=== PATIENT | female | born 1945 | race Caucasian/White ===

== ENCOUNTER → 2020-01-18 | Outpatient (CLI) | payer MEDICARE ==
[~2020-01-18] MED LIST: ACET1TAB39 PO; CIPR500T3 PO; LISI-170 PO; LISI1TAB19 PO; LISI1TAB23 PO; METF500T17 PO; ZOLP10TA PO
[2020-01-18 10:06] LABS: BASOPHILS # (AUTO) 0.06 x10^3/uL (0-0.1); BASOPHILS % (AUTO) 1 % (0-1); EOSINOPHILS # (AUTO) 0.92 x10^3/uL (0-0.4); EOSINOPHILS % (AUTO) 12 % (1-7); LYMPHOCYTES # (AUTO) 1.14 x10^3/uL (1-3.4); LYMPHOCYTES % (AUTO) 14 % (22-44); MD NO; MEAN CORPUSCULAR HEMOGLOBIN 30.8 pg (27.0-34.8); MEAN CORPUSCULAR HGB CONC 34.3 g/dL (32.4-35.8); MEAN CORPUSCULAR VOLUME 89.8 fL (80-100); MEAN PLATELET VOLUME 7.7 fL (7.4-10.4); MONOCYTES # (AUTO) 0.65 x10^3/uL (0.2-0.8); MONOCYTES % (AUTO) 8 % (2-9); NEUTROPHILS # (AUTO) 5.18 x10^3/uL (1.8-6.8); NEUTROPHILS % (AUTO) 65 % (42-75); PLATELET COUNT 295 x10^3/uL (130-400); RED BLOOD COUNT 4.82 x10^6/uL (3.82-5.3); RED CELL DISTRIBUTION WIDTH 13.1 % (9.6-15.2)
[2020-01-18 10:13] LABS: INTERNATIONAL NORMALIZED RATIO 0.95 (0.93-1.1); PROTHROMBIN TIME 10.1 Seconds (9.6-11.5)
[2020-01-18 10:15] LABS: ALANINE AMINOTRANSFERASE 19 U/L (12-78); ALBUMIN 3.7 g/dL (3.4-5.0); ANION GAP 9 mmol/L (5-15); CALCIUM 8.8 mg/dL (8.5-10.1); CHLORIDE 103 mmol/L (98-107); CREATININE 1.07 mg/dL (0.55-1.02)
[2020-01-18 10:17] LABS: ALKALINE PHOSPHATASE 80 U/L (45-117); BILIRUBIN,TOTAL 0.6 mg/dL (0.2-1.0); TOTAL PROTEIN 7.3 g/dL (6.4-8.2)
== END | disposition home or self-care (01) ==
LOC: STAR 08:55
PROVIDERS: ATTEND Orthopaedic Surgery
DX: Z01.818 Encounter for other preprocedural examination (principal); M16.11 Unilateral primary osteoarthritis, right hip
CPT/HCPCS: 36415; 80053; 83036; 85025; 85610; 85730; 87081; 87806; 93005; G0475

== ENCOUNTER 2020-01-24 10:29 | Observation (INO) | payer MEDICARE ==
[~2020-01-24] VITALS: Ht 172.7 cm; Wt 87.1 kg
[~2020-01-24 10:29] MED LIST changes: +EPINEPHRINE 1 MG/ML, 1ML ONE; +KETOROLAC 60 MG/2 ML ONE; +ROPIvacaine/PF 0.2%, 20 ML ONE; +SODIUM CHLORIDE 0.9% 50 ML ONE; +TRANEXAMIC ACID 100 MG/ML, 10ML ONE
[2020-01-24] MEDS ORDERED: LACTATED RINGERS 1,000 ML IV SCH (10:47)
[2020-01-24] MEDS ORDERED: GABAPENTIN 300 MG CAPSULE PO ONE (11:00)
[2020-01-24] MEDS ORDERED: ACETAMINOPHEN 500 MG TABLET PO ONE (11:00)
[2020-01-24 11:06] VITALS: BP 142/71
[2020-01-24] MEDS ORDERED: FENTANYL PF 250 MCG/5ML ONE (12:40)
[2020-01-24] MEDS ORDERED: MIDAZOLAM 1 MG/ML, 2ML ONE (12:40)
[2020-01-24] MEDS: D5%-0.45NACL+KCL 20MEQ 1,000 ML IV SCH ×2 (13:25→23:25)
[2020-01-24] MEDS ORDERED: HYDROmorphone 1 MG/ML, 1ML INJ IVPush PRN (13:30)
[2020-01-24] MEDS ORDERED: ONDANSETRON 2MG/ML, 2ML IV PRN ×2 (13:30→15:30)
[2020-01-24] MEDS ORDERED: SENNA/DOCUSATE TABLET PO PRN (13:30)
[2020-01-24] MEDS ORDERED: DIPHENHYDRAMINE 50 MG CAPSULE PO PRN (13:30)
[2020-01-24] MEDS ORDERED: MAGNESIUM HYDROXIDE 8%, 30ML UDC PO PRN (13:30)
[2020-01-24] MEDS ORDERED: DIPHENHYDRAMINE 50 MG/ML, 1ML IVPush PRN (13:30)
[2020-01-24] MEDS ORDERED: ALUMINUM/MAG/SIMETHICONE 30 ML UDC PO PRN (13:30)
[2020-01-24] MEDS ORDERED: POLYETHYLENE GLYCOL 17 GM PACKET PO PRN (13:30)
[2020-01-24] MEDS ORDERED: ONDANSETRON 4 MG TABLET PO PRN (13:30)
[2020-01-24] MEDS ORDERED: TRANEXAMIC ACID 1,000 MG in SODIUM CHLORIDE 0.9% 100 ML IVPB ONE ×2 (13:30→13:58)
[2020-01-24] MEDS ORDERED: PSYLLIUM PACKET PO PRN (13:30)
[2020-01-24] MEDS ORDERED: DEXAMETHASONE 4 MG/ML, 1ML IVPush SCH (13:30)
[2020-01-24] MEDS ORDERED: ACETAMINOPHEN 650 MG/20.3 ML UDC PO PRN (13:30)
[2020-01-24] MEDS ORDERED: CEFAZOLIN 1,000 MG ONE (14:23)
[2020-01-24] MEDS ORDERED: SUGAMMADEX 200 MG/2 ML IVPush ONE (14:23)
[2020-01-24] MEDS ORDERED: PROPOFOL 10 MG/ML, 20ML ONE (14:23)
[2020-01-24] MEDS ORDERED: GLYCOPYRROLATE 0.2MG/1ML, 5ML ONE (14:23)
[2020-01-24] MEDS ORDERED: ONDANSETRON 2MG/ML, 2ML ONE (14:23)
[2020-01-24] MEDS ORDERED: NEOSTIGMINE 1 MG/ML, 10ML ONE (14:23)
[2020-01-24] MEDS ORDERED: ROCURONIUM 10MG/ML,5ML ONE (14:23)
[2020-01-24] MEDS ORDERED: SUCCINYLCHOLINE 20 MG/ML, 10ML ONE (14:23)
[2020-01-24] MEDS ORDERED: DEXAMETHASONE 4 MG/ML, 1ML ONE (14:23)
[2020-01-24] MEDS: FENTANYL PF 100 MCG/2ML IV PRN ×2 (14:57→15:23)
[2020-01-24] MEDS ORDERED: OXYcodone 5 MG/5 ML ORAL.SOL UDC ONE (14:58)
[2020-01-24] MEDS ORDERED: FENTANYL PF 100 MCG/2ML ONE (14:58)
[2020-01-24] MEDS ORDERED: LORazepam 2 MG/ML, 1ML ONE (15:10)
[2020-01-24] MEDS: LORazepam 2 MG/ML, 1ML IVPush PRN ×2 (15:13→15:32)
[2020-01-24] MEDS ORDERED: hydrALAzine 20 MG/ML, 1ML IV PRN (15:30)
[2020-01-24] MEDS ORDERED: PROMETHAZINE 25 MG SUPP PR PRN (15:30)
[2020-01-24] MEDS ORDERED: LABETALOL 5MG/ML, 20ML IV PRN (15:30)
[2020-01-24] MEDS ORDERED: METHOCARBAMOL 1000MG/10 ML IV ONE (15:30)
[2020-01-24] MEDS ORDERED: METHOCARBAMOL 1,000 MG in DEXTROSE 5% 100 ML IV ONE (15:30)
[2020-01-24] MEDS ORDERED: ONDANSETRON ODT 8 MG PO PRN (15:30)
[2020-01-24] MEDS ORDERED: HYDROmorphone 2 MG/ML, 1ML IVPush PRN (15:30)
[2020-01-24] MEDS ORDERED: OXYcodone 5 MG/5 ML ORAL.SOL UDC PO PRN (15:30)
[2020-01-24] MEDS ORDERED: PROMETHAZINE 25 MG/ML, 1ML IV PRN (15:30)
[2020-01-24] MEDS: ACETAMINOPHEN 325 MG TABLET PO SCH ×3 (17:30→21:30)
[2020-01-24] MEDS ORDERED: ZOLPIDEM 10MG TABLET PO PRN (18:00)
[2020-01-24] MEDS: DOCUSATE 100 MG CAPSULE PO SCH (20:16)
[2020-01-24] MEDS: ASPIRIN 81 MG TABLET EC PO SCH (20:17)
[2020-01-24] MEDS: KETOROLAC 30 MG/1 ML IV SCH (20:18)
[2020-01-24] MEDS: OXYcodone IR 5MG TABLET PO PRN (20:47)
[2020-01-24 20:59] VITALS: BP 146/78
[2020-01-24] MEDS: CEFAZOLIN PMX 1GM/50ML 50 ML IVPB SCH (22:06)
[2020-01-24 23:20] VITALS: BP 127/73
[2020-01-25] MEDS: ACETAMINOPHEN 325 MG TABLET PO SCH ×3 (02:49→10:30)
[2020-01-25 03:08] VITALS: BP 142/70
[2020-01-25] MEDS: CEFAZOLIN PMX 1GM/50ML 50 ML IVPB SCH (05:46)
[2020-01-25] MEDS: KETOROLAC 30 MG/1 ML IV SCH ×2 (05:46→12:00)
[2020-01-25 07:15] VITALS: BP 143/73
[2020-01-25] MEDS: DOCUSATE 100 MG CAPSULE PO SCH (08:16)
[2020-01-25] MEDS: ASPIRIN 81 MG TABLET EC PO SCH (08:16)
[2020-01-25] MEDS: D5%-0.45NACL+KCL 20MEQ 1,000 ML IV SCH (08:18)
[2020-01-25] MEDS ORDERED: ASPI81TA45 PO (08:48)
[2020-01-25] MEDS ORDERED: HYDROCHLOROTHIAZIDE 12.5 MG CAPSULE PO SCH (09:00)
[2020-01-25] MEDS ORDERED: TAMSULOSIN 0.4 MG CAP.ER.24H PO SCH (09:00)
[2020-01-25] MEDS ORDERED: LISINOPRIL 20 MG TABLET PO SCH (09:00)
[2020-01-25] MEDS: OXYcodone IR 5MG TABLET PO PRN (10:19)
[2020-01-25 11:58] VITALS: BP 113/57
== END 2020-01-25 12:40 | disposition home or self-care (01) ==
LOC: OUT 10:29 → ORIP 13:25 → 4NE 17:20 → DCLOUNGE 01-25 12:25
PROVIDERS: ADMIT Orthopaedic Surgery; ATTEND Orthopaedic Surgery
DX: M17.11 Unilateral primary osteoarthritis, right knee (principal); I10 Essential (primary) hypertension; Z79.899 Other long term (current) drug therapy; Z87.891 Personal history of nicotine dependence
CPT/HCPCS: 27447; 36415; 73560; 85014; 85018; 96365; 96366; 96375; 96376; 97110; 97161; C1713; C1776; G0378; J0171; J0330; J0690; J1100; J1885; J2060; J2250; J2405; J2704; J2710; J2795; J2800; J3010; J7120

== ENCOUNTER 2020-04-28 04:55 | Inpatient (IN) | payer MEDICARE ==
[~2020-04-28] VITALS: Ht 172.7 cm; Wt 88.7 kg
[~2020-04-28 04:55] MED LIST changes: +ASPI81TA45 PO; -EPINEPHRINE 1 MG/ML, 1ML ONE; -KETOROLAC 60 MG/2 ML ONE; -ROPIvacaine/PF 0.2%, 20 ML ONE; -SODIUM CHLORIDE 0.9% 50 ML ONE; -TRANEXAMIC ACID 100 MG/ML, 10ML ONE
[2020-04-28] MEDS ORDERED: VANCOMYCIN PER PHARMACY MC ONE (05:15)
[2020-04-28] MEDS ORDERED: VANCOMYCIN 1,600 MG in SODIUM CHLORIDE 0.9% 250 ML IV ONE (05:30)
[2020-04-28] MEDS ORDERED: HYDROmorphone 2 MG/ML, 1ML IVPush PRN (05:30)
[2020-04-28] MEDS ORDERED: SODIUM CHLORIDE 0.9% 1,000ML IVBOLUS ONE (05:30)
[2020-04-28] MEDS ORDERED: DILTIAZEM 5 MG/ML, 5ML ONE (05:37)
[2020-04-28] MEDS ORDERED: LIDOCAINE-MPF 2% ,5ML ONE (05:44)
--- NOTE | 2020-04-28 05:48 | NUR ---
CT DELAY, MD STARTING CENTRAL LINE ON PT.
[2020-04-28] MEDS ORDERED: LIDOCAINE-MPF 1%, 5ML ONE (05:50)
--- NOTE | 2020-04-28 05:59 | NUR ---
Kristi rn: states only wanting one blood culture prior to abx and states she already got abx at other facility.
--- NOTE | 2020-04-28 06:03 | NUR ---
Kristi rn: states ok to use central line, present at bedside during cxr.
[2020-04-28 06:10] LABS: MEAN CORPUSCULAR HEMOGLOBIN 30.1 pg (27.0-34.8); MEAN CORPUSCULAR HGB CONC 33.2 g/dL (32.4-35.8); MEAN CORPUSCULAR VOLUME 90.6 fL (80-100); MEAN PLATELET VOLUME 8.9 fL (7.4-10.4); PLATELET COUNT 278 x10^3/uL (130-400); RED BLOOD COUNT 4.29 x10^6/uL (3.82-5.3); RED CELL DISTRIBUTION WIDTH 13.4 % (9.6-15.2)
--- NOTE | 2020-04-28 06:10 | NUR ---
Pt to ct at this time.
--- NOTE | 2020-04-28 06:21 | NUR ---
TASK RN: PT BACK FROM CT, RESTING IN [facility], NAD, SKIN IS WARM AND DRY, CALL LIGHT ON LAP, ON MONITOR, DENIES ADDITIONAL NEEDS AT THIS TIME. WAITING FOR TEST RESULTS. WCTM.
[2020-04-28 06:22] LABS: ALBUMIN 2.4 g/dL (3.4-5.0); ANION GAP 13 mmol/L (5-15); CALCIUM 7.7 mg/dL (8.5-10.1); CHLORIDE 102 mmol/L (98-107)
[2020-04-28 06:27] LABS: ALANINE AMINOTRANSFERASE 35 U/L (12-78); ALKALINE PHOSPHATASE 95 U/L (45-117); BILIRUBIN,TOTAL 1.3 mg/dL (0.2-1.0); TOTAL PROTEIN 6.2 g/dL (6.4-8.2)
[2020-04-28] MEDS ORDERED: NOREPINEPHRINE 8 MG in SODIUM CHLORIDE 0.9% 242 ML IV PRN ×2 (06:30→09:38)
[2020-04-28] MEDS: NOREPINEPHRINE 8 MG in SODIUM CHLORIDE 0.9% 242 ML IV PRN ×2 (06:30→07:00)
[2020-04-28 06:31] LABS: MD YES
[2020-04-28 06:32] LABS: BAND#(MANUAL) 2.03 x10^3/uL; BANDS%(MANUAL) 9 % (0-7); LYMPH#(MANUAL) 0.23 x10^3/uL (1-3.4); LYMPHS% (MANUAL) 1 % (22-44); MONOS#(MANUAL) 0.23 x10^3/uL (0.3-2.7); MONOS% (MANUAL) 1 % (2-9); SEG#(MANUAL) 20.11 x10^3/uL (1.8-6.8); SEGS% (MANUAL) 89 % (42-75)
[2020-04-28 06:33] LABS: <PLATELET ESTIMATE> ADEQUATE; <PLT MORPHOLOGY> NORMAL PLT MORPH; <RBC MORPHOLOGY> NORMAL
[2020-04-28] MEDS ORDERED: FENTANYL PF 250 MCG/5ML ONE (06:52)
[2020-04-28] MEDS ORDERED: MIDAZOLAM 1 MG/ML, 2ML ONE (06:52)
[2020-04-28] MEDS ORDERED: DILTIAZEM 5 MG/ML, 5ML IVPush ONE (07:00)
[2020-04-28] MEDS ORDERED: VASOPRESSIN 20 UNIT/ML, 1ML ONE (07:20)
[2020-04-28] MEDS ORDERED: SODIUM BICARBONATE 1 MEQ/ML, 50ML VIAL ONE ×4 (07:54→08:02)
[2020-04-28] MEDS ORDERED: CALCIUM CHLORIDE 10%, 10ML SYR ONE (07:57)
[2020-04-28] MEDS ORDERED: METHYLENE BLUE 10 MG/ML 10ML ONE (08:15)
[2020-04-28] MEDS ORDERED: ROCURONIUM 10MG/ML,5ML ONE ×2 (08:28)
[2020-04-28 08:44] LABS: MICROSCOPIC INDICATED
[2020-04-28] MEDS ORDERED: MIDAZOLAM 1 MG/ML, 5ML ONE (08:45)
[2020-04-28] MEDS ORDERED: HYDROmorphone 2 MG/ML, 1ML ONE (09:06)
[2020-04-28] MEDS ORDERED: PROPOFOL 100 ML IV ONE (09:52)
[2020-04-28] MEDS: PROPOFOL 100 ML IV PRN ×2 (09:58→17:05)
[2020-04-28] MEDS ORDERED: SENNA/DOCUSATE TABLET NG PRN (10:00)
[2020-04-28] MEDS ORDERED: LACTULOSE 20 GM/30 ML UDC NG PRN (10:00)
[2020-04-28] MEDS ORDERED: PHARMACY MAY ADJ FOR RENAL FX MC SCH (10:00)
[2020-04-28] MEDS ORDERED: BISACODYL 10 MG SUPP PR PRN (10:00)
[2020-04-28] MEDS ORDERED: SENNA 176 MG/5 ML ORAL SOL NG PRN (10:00)
[2020-04-28] MEDS ORDERED: GLUCAGON 1 MG IM PRN (10:00)
[2020-04-28] MEDS ORDERED: LIDOCAINE-MPF 1%, 2ML ENDO PRN (10:00)
[2020-04-28] MEDS ORDERED: DEXTROSE 4 GM TAB.CHEW PO PRN (10:00)
[2020-04-28] MEDS ORDERED: DEXTROSE 50%, 50ML SYRINGE IVPush PRN (10:00)
[2020-04-28 10:24] LABS: FIO2 100 %
[2020-04-28 10:36] LABS: ANION GAP 18 mmol/L (5-15); CALCIUM 7.8 mg/dL (8.5-10.1); CHLORIDE 106 mmol/L (98-107)
[2020-04-28 10:40] LABS: INTERNATIONAL NORMALIZED RATIO 1.21 (0.93-1.1); PROTHROMBIN TIME 12.8 Seconds (9.6-11.5)
[2020-04-28 10:43] LABS: CREATININE 2.64 mg/dL (0.55-1.02); TRIGLYCERIDES 139 mg/dL (50-200); TROPONIN I < 0.015 ng/mL (0.000-0.045)
[2020-04-28] MEDS ORDERED: FILTER 0.22 MICRON IV SCH (11:00)
[2020-04-28] MEDS ORDERED: AMIODARONE 150 MG in DEXTROSE 5% 100 ML IV ONE (11:00)
[2020-04-28] MEDS: PIPERACILLIN/TAZO/PMX 3.375GM 50 ML IV SCH ×3 (11:19→22:30)
[2020-04-28] MEDS: AMIODARONE 450 MG in DEXTROSE 5% 241 ML IV PRN ×2 (11:19→19:56)
[2020-04-28] MEDS ORDERED: POTASSIUM CHLORIDE PMX 100 ML IV ONE (11:30)
[2020-04-28] MEDS ORDERED: MAGNESIUM SULFATE PMX 4GM/100M 100 ML IV ONE (11:30)
[2020-04-28] MEDS: FLUCONAZOLE 200 MG/100 ML 100 ML IV SCH (12:19)
[2020-04-28 13:17] LABS: FIO2 60 %
[2020-04-28 17:25] LABS: TROPONIN I < 0.015 ng/mL (0.000-0.045)
[2020-04-28 17:54] LABS: FREE T4 (FREE THYROXINE) 1.53 ng/dL (0.76-1.46)
[2020-04-28] MEDS: FENTANYL PF 100 MCG/2ML IVPush PRN ×2 (18:11→21:15)
[2020-04-28] MEDS: SODIUM CHLORIDE FLUSH 10ML SYR IVF SCH (21:06)
[2020-04-29] MEDS: PROPOFOL 100 ML IV PRN ×2 (01:29→05:20)
[2020-04-29 04:00] VITALS: BP 100/51
[2020-04-29] MEDS: PIPERACILLIN/TAZO/PMX 3.375GM 50 ML IV SCH ×4 (04:23→23:09)
[2020-04-29 04:45] LABS: MEAN CORPUSCULAR HEMOGLOBIN 29.9 pg (27.0-34.8); MEAN CORPUSCULAR HGB CONC 32.9 g/dL (32.4-35.8); MEAN CORPUSCULAR VOLUME 90.7 fL (80-100); MEAN PLATELET VOLUME 8.5 fL (7.4-10.4); PLATELET COUNT 224 x10^3/uL (130-400); RED BLOOD COUNT 3.87 x10^6/uL (3.82-5.3); RED CELL DISTRIBUTION WIDTH 13.4 % (9.6-15.2)
[2020-04-29 04:50] LABS: CHLORIDE 106 mmol/L (98-107)
[2020-04-29 04:57] LABS: ANION GAP 9 mmol/L (5-15); CALCIUM 7.7 mg/dL (8.5-10.1); CREATININE 1.81 mg/dL (0.55-1.02)
[2020-04-29 05:59] LABS: MD YES
[2020-04-29 06:01] LABS: <PLATELET ESTIMATE> ADEQUATE; <PLT MORPHOLOGY> NORMAL PLT MORPH; <RBC MORPHOLOGY> NORMAL; BAND#(MANUAL) 0.86 x10^3/uL; BANDS%(MANUAL) 7 % (0-7); EOS#(MANUAL) 0.12 x10^3/uL (0.0-0.4); EOS% (MANUAL) 1 % (1-7); LYMPH#(MANUAL) 0.25 x10^3/uL (1-3.4); LYMPHS% (MANUAL) 2 % (22-44); MONOS#(MANUAL) 0.25 x10^3/uL (0.3-2.7); MONOS% (MANUAL) 2 % (2-9); SEG#(MANUAL) 10.82 x10^3/uL (1.8-6.8); SEGS% (MANUAL) 88 % (42-75)
[2020-04-29 06:02] LABS: PMNS WITH VACUOLES 1+
[2020-04-29] MEDS ORDERED: POTASSIUM CHLORIDE 40 MEQ in SODIUM CHLORIDE 0.9% 100 ML IV ONE (06:30)
[2020-04-29] MEDS: FENTANYL PF 100 MCG/2ML IVPush PRN ×2 (09:02→10:41)
[2020-04-29] MEDS: PANTOPRAZOLE 40 MG IV IV SCH (09:08)
[2020-04-29] MEDS: SODIUM CHLORIDE FLUSH 10ML SYR IVF SCH ×2 (09:09→21:00)
[2020-04-29] MEDS ORDERED: ALBUTEROL/IPRATROPIUM 2.5MG/0.5MG, 3 ML ONE (10:11)
[2020-04-29] MEDS ORDERED: ALBUTEROL/IPRATROPIUM 2.5MG/0.5MG, 3 ML NEB ONE (10:30)
[2020-04-29] MEDS: FLUCONAZOLE 200 MG/100 ML 100 ML IV SCH (11:35)
[2020-04-29] MEDS: AMIODARONE 450 MG in DEXTROSE 5% 241 ML IV PRN (11:36)
[2020-04-29] MEDS: HEPARIN 5,000 UNITS/ML, 1ML SQ SCH ×2 (12:47→20:57)
[2020-04-29] MEDS: HYDROmorphone 1 MG/ML, 1ML INJ IV PRN ×2 (12:47→18:24)
[2020-04-30] MEDS: HYDROmorphone 1 MG/ML, 1ML INJ IV PRN ×4 (01:54→20:51)
[2020-04-30] MEDS: AMIODARONE 450 MG in DEXTROSE 5% 241 ML IV PRN ×2 (02:51→23:11)
[2020-04-30 03:53] LABS: ANION GAP 6 mmol/L (5-15); CALCIUM 7.9 mg/dL (8.5-10.1); CHLORIDE 106 mmol/L (98-107); CREATININE 1.42 mg/dL (0.55-1.02)
[2020-04-30 03:57] LABS: MEAN CORPUSCULAR HEMOGLOBIN 29.8 pg (27.0-34.8); MEAN CORPUSCULAR VOLUME 90.2 fL (80-100); MEAN PLATELET VOLUME 8.1 fL (7.4-10.4); PLATELET COUNT 261 x10^3/uL (130-400); RED BLOOD COUNT 3.82 x10^6/uL (3.82-5.3); RED CELL DISTRIBUTION WIDTH 13.8 % (9.6-15.2)
[2020-04-30 04:00] VITALS: BP 123/59
[2020-04-30 04:48] LABS: BASOPHILS % (AUTO) 0 % (0-1); EOSINOPHILS # (AUTO) 0.21 x10^3/uL (0-0.4); EOSINOPHILS % (AUTO) 2 % (1-7); LYMPHOCYTES # (AUTO) 0.54 x10^3/uL (1-3.4); LYMPHOCYTES % (AUTO) 5 % (22-44); MD SCAN; MONOCYTES # (AUTO) 0.54 x10^3/uL (0.2-0.8); MONOCYTES % (AUTO) 5 % (2-9); NEUTROPHILS # (AUTO) 9.38 x10^3/uL (1.8-6.8); NEUTROPHILS % (AUTO) 88 % (42-75)
[2020-04-30] MEDS: PIPERACILLIN/TAZO/PMX 3.375GM 50 ML IV SCH ×4 (04:55→23:10)
[2020-04-30] MEDS: HEPARIN 5,000 UNITS/ML, 1ML SQ SCH ×3 (04:55→20:51)
[2020-04-30] MEDS ORDERED: POTASSIUM CHLORIDE 40 MEQ in SODIUM CHLORIDE 0.9% 100 ML IV ONE (06:00)
[2020-04-30] MEDS: PANTOPRAZOLE 40 MG IV IV SCH (08:53)
[2020-04-30] MEDS: SODIUM CHLORIDE FLUSH 10ML SYR IVF SCH ×2 (08:54→20:51)
[2020-04-30] MEDS: LACTATED RINGERS 1,000 ML IV SCH (15:07)
[2020-04-30 20:00] VITALS: BP 143/82
[2020-05-01] MEDS: LACTATED RINGERS 1,000 ML IV SCH (00:33)
[2020-05-01 01:01] VITALS: BP 119/70
[2020-05-01] MEDS: HYDROmorphone 1 MG/ML, 1ML INJ IV PRN ×3 (01:05→09:24)
[2020-05-01] MEDS: HEPARIN 5,000 UNITS/ML, 1ML SQ SCH ×3 (05:22→22:56)
[2020-05-01 05:43] LABS: BASOPHILS # (AUTO) 0.03 x10^3/uL (0-0.1); BASOPHILS % (AUTO) 0 % (0-1); EOSINOPHILS # (AUTO) 0.25 x10^3/uL (0-0.4); EOSINOPHILS % (AUTO) 3 % (1-7); LYMPHOCYTES # (AUTO) 0.73 x10^3/uL (1-3.4); LYMPHOCYTES % (AUTO) 8 % (22-44); MD NO; MEAN CORPUSCULAR HEMOGLOBIN 29.7 pg (27.0-34.8); MEAN CORPUSCULAR HGB CONC 32.9 g/dL (32.4-35.8); MEAN CORPUSCULAR VOLUME 90.5 fL (80-100); MEAN PLATELET VOLUME 8.1 fL (7.4-10.4); MONOCYTES % (AUTO) 5 % (2-9); NEUTROPHILS # (AUTO) 8.04 x10^3/uL (1.8-6.8); NEUTROPHILS % (AUTO) 84 % (42-75); PLATELET COUNT 294 x10^3/uL (130-400); RED BLOOD COUNT 4.04 x10^6/uL (3.82-5.3); RED CELL DISTRIBUTION WIDTH 14.2 % (9.6-15.2)
[2020-05-01 05:53] LABS: ANION GAP 10 mmol/L (5-15); CALCIUM 8.1 mg/dL (8.5-10.1); CHLORIDE 108 mmol/L (98-107); CREATININE 1.18 mg/dL (0.55-1.02)
[2020-05-01 06:44] VITALS: BP 131/86
[2020-05-01] MEDS: PIPERACILLIN/TAZO/PMX 3.375GM 50 ML IV SCH (07:52)
[2020-05-01] MEDS: SODIUM CHLORIDE FLUSH 10ML SYR IVF SCH ×2 (08:05→22:56)
[2020-05-01] MEDS: PANTOPRAZOLE 40 MG IV IV SCH (08:05)
[2020-05-01 12:35] VITALS: BP 138/67
[2020-05-01] MEDS: OXYcodone IR 5MG TABLET PO PRN ×3 (13:02→22:56)
[2020-05-01 18:53] VITALS: BP 159/72
[2020-05-01] MEDS ORDERED: ONDANSETRON 2MG/ML, 2ML ONE (20:25)
[2020-05-01] MEDS: ONDANSETRON 2MG/ML, 2ML IVPush PRN (20:29)
[2020-05-01] MEDS: FAMOTIDINE 20 MG TABLET PO SCH (22:56)
[2020-05-01] MEDS: CEFUROXIME 250 MG TABLET PO SCH (22:56)
[2020-05-02 01:07] VITALS: BP 143/67
[2020-05-02] MEDS: OXYcodone IR 5MG TABLET PO PRN ×4 (03:19→20:08)
[2020-05-02] MEDS: ONDANSETRON 2MG/ML, 2ML IVPush PRN (03:19)
[2020-05-02] MEDS: HEPARIN 5,000 UNITS/ML, 1ML SQ SCH (04:32)
[2020-05-02 07:16] LABS: BASOPHILS # (AUTO) 0.03 x10^3/uL (0-0.1); BASOPHILS % (AUTO) 0 % (0-1); EOSINOPHILS # (AUTO) 0.07 x10^3/uL (0-0.4); EOSINOPHILS % (AUTO) 1 % (1-7); LYMPHOCYTES # (AUTO) 0.74 x10^3/uL (1-3.4); LYMPHOCYTES % (AUTO) 7 % (22-44); MD NO; MEAN CORPUSCULAR HEMOGLOBIN 29.7 pg (27.0-34.8); MEAN CORPUSCULAR HGB CONC 33.4 g/dL (32.4-35.8); MEAN CORPUSCULAR VOLUME 89.1 fL (80-100); MEAN PLATELET VOLUME 7.7 fL (7.4-10.4); MONOCYTES # (AUTO) 0.71 x10^3/uL (0.2-0.8); MONOCYTES % (AUTO) 6 % (2-9); NEUTROPHILS % (AUTO) 86 % (42-75); PLATELET COUNT 350 x10^3/uL (130-400); RED BLOOD COUNT 4.23 x10^6/uL (3.82-5.3); RED CELL DISTRIBUTION WIDTH 13.7 % (9.6-15.2)
[2020-05-02 07:25] LABS: ANION GAP 13 mmol/L (5-15); CALCIUM 8.1 mg/dL (8.5-10.1); CHLORIDE 106 mmol/L (98-107); CREATININE 0.95 mg/dL (0.55-1.02)
[2020-05-02 07:48] VITALS: BP 148/84
[2020-05-02] MEDS ORDERED: POTASSIUM CHLORIDE 20 MEQ TAB.ER.PRT PO ONE (08:30)
[2020-05-02] MEDS: APIXABAN 5 MG TABLET PO SCH ×2 (09:17→20:08)
[2020-05-02] MEDS: FAMOTIDINE 20 MG TABLET PO SCH ×2 (09:17→20:08)
[2020-05-02] MEDS: SODIUM CHLORIDE FLUSH 10ML SYR IVF SCH ×2 (09:18→20:06)
[2020-05-02] MEDS: AMIODARONE 200 MG TABLET PO SCH (09:18)
[2020-05-02] MEDS: CEFUROXIME 250 MG TABLET PO SCH ×2 (09:22→20:08)
[2020-05-02 13:20] VITALS: BP 142/76
[2020-05-02] MEDS: LACTULOSE 20 GM/30 ML UDC NG SCH ×2 (18:18→20:01)
[2020-05-02] MEDS: SENNA/DOCUSATE TABLET PO SCH ×2 (18:18→20:01)
[2020-05-02 19:03] VITALS: BP 138/84
[2020-05-03 01:28] VITALS: BP 123/87
[2020-05-03] MEDS: OXYcodone IR 5MG TABLET PO PRN ×4 (02:22→15:53)
[2020-05-03 04:52] LABS: ANION GAP 10 mmol/L (5-15); CALCIUM 7.9 mg/dL (8.5-10.1); CHLORIDE 108 mmol/L (98-107); CREATININE 0.82 mg/dL (0.55-1.02)
[2020-05-03 04:53] LABS: BASOPHILS # (AUTO) 0.01 x10^3/uL (0-0.1); BASOPHILS % (AUTO) 0 % (0-1); EOSINOPHILS # (AUTO) 0.12 x10^3/uL (0-0.4); EOSINOPHILS % (AUTO) 1 % (1-7); LYMPHOCYTES % (AUTO) 6 % (22-44); MD NO; MEAN CORPUSCULAR HEMOGLOBIN 29.5 pg (27.0-34.8); MEAN CORPUSCULAR HGB CONC 33.1 g/dL (32.4-35.8); MEAN PLATELET VOLUME 7.7 fL (7.4-10.4); MONOCYTES # (AUTO) 0.68 x10^3/uL (0.2-0.8); MONOCYTES % (AUTO) 5 % (2-9); NEUTROPHILS # (AUTO) 11.96 x10^3/uL (1.8-6.8); NEUTROPHILS % (AUTO) 88 % (42-75); PLATELET COUNT 353 x10^3/uL (130-400); RED BLOOD COUNT 4.11 x10^6/uL (3.82-5.3); RED CELL DISTRIBUTION WIDTH 13.8 % (9.6-15.2)
[2020-05-03 07:04] VITALS: BP 123/86
[2020-05-03] MEDS: FUROSEMIDE 20 MG/2 ML IV SCH ×2 (07:52→17:30)
[2020-05-03] MEDS: FAMOTIDINE 20 MG TABLET PO SCH ×2 (07:53→20:12)
[2020-05-03] MEDS: AMIODARONE 200 MG TABLET PO SCH (07:53)
[2020-05-03] MEDS: CEFUROXIME 250 MG TABLET PO SCH ×2 (07:53→20:12)
[2020-05-03] MEDS: POTASSIUM CHLORIDE 20 MEQ TAB.ER.PRT PO SCH ×3 (07:53→17:30)
[2020-05-03] MEDS: APIXABAN 5 MG TABLET PO SCH ×2 (07:54→20:12)
[2020-05-03] MEDS: SENNA/DOCUSATE TABLET PO SCH ×2 (07:54→21:00)
[2020-05-03] MEDS: LACTULOSE 20 GM/30 ML UDC NG SCH (07:54)
[2020-05-03] MEDS: SODIUM CHLORIDE FLUSH 10ML SYR IVF SCH (07:54)
[2020-05-03] MEDS: CLOTRIMAZOLE TROCHES 10 MG PO SCH ×4 (10:45→20:12)
[2020-05-03 12:30] VITALS: BP 132/85
[2020-05-03 15:50] VITALS: BP 142/82
[2020-05-03] MEDS: METOPROLOL TARTRATE 25 MG TAB PO SCH ×2 (15:53→17:30)
[2020-05-03] MEDS: PIPERACILLIN/TAZO/PMX 4.5GM 100 ML IV SCH (17:30)
[2020-05-03 18:47] VITALS: BP 115/78
[2020-05-04] MEDS: PIPERACILLIN/TAZO/PMX 4.5GM 100 ML IV SCH ×3 (00:04→22:14)
[2020-05-04] MEDS: SODIUM CHLORIDE FLUSH 10ML SYR IVF SCH ×3 (00:04→22:15)
[2020-05-04 01:21] VITALS: BP 138/81
[2020-05-04] MEDS: OXYcodone IR 5MG TABLET PO PRN ×4 (01:25→18:42)
[2020-05-04] MEDS: ONDANSETRON 2MG/ML, 2ML IVPush PRN (05:58)
[2020-05-04] MEDS: METOPROLOL TARTRATE 25 MG TAB PO SCH ×2 (06:00→18:42)
[2020-05-04] MEDS: CLOTRIMAZOLE TROCHES 10 MG PO SCH ×5 (06:01→20:23)
[2020-05-04 07:13] LABS: MEAN CORPUSCULAR HEMOGLOBIN 29.7 pg (27.0-34.8); MEAN CORPUSCULAR HGB CONC 33.4 g/dL (32.4-35.8); MEAN PLATELET VOLUME 7.4 fL (7.4-10.4); PLATELET COUNT 457 x10^3/uL (130-400); RED BLOOD COUNT 4.31 x10^6/uL (3.82-5.3); RED CELL DISTRIBUTION WIDTH 13.7 % (9.6-15.2)
[2020-05-04 07:21] LABS: ANION GAP 8 mmol/L (5-15); CALCIUM 7.7 mg/dL (8.5-10.1); CHLORIDE 103 mmol/L (98-107); CREATININE 0.94 mg/dL (0.55-1.02)
[2020-05-04 07:46] VITALS: BP 139/78
[2020-05-04 07:46] LABS: <PLATELET ESTIMATE> INCREASED; <PLT MORPHOLOGY> NORMAL PLT MORPH; <RBC MORPHOLOGY> NORMAL; BASOPHILS % (AUTO) 1 % (0-1); EOSINOPHILS # (AUTO) 0.17 x10^3/uL (0-0.4); EOSINOPHILS % (AUTO) 1 % (1-7); LYMPHOCYTES # (AUTO) 1.04 x10^3/uL (1-3.4); LYMPHOCYTES % (AUTO) 7 % (22-44); MD MORPH REVIEW ONLY; MONOCYTES # (AUTO) 0.68 x10^3/uL (0.2-0.8); MONOCYTES % (AUTO) 4 % (2-9); NEUTROPHILS # (AUTO) 13.96 x10^3/uL (1.8-6.8); NEUTROPHILS % (AUTO) 88 % (42-75); PMNS WITH VACUOLES 1+; TOXIC GRAN 1+
[2020-05-04] MEDS: FUROSEMIDE 20 MG/2 ML IV SCH ×2 (08:26→22:15)
[2020-05-04] MEDS: POTASSIUM CHLORIDE 20 MEQ TAB.ER.PRT PO SCH ×2 (08:32→12:29)
[2020-05-04] MEDS: CEFUROXIME 250 MG TABLET PO SCH (08:32)
[2020-05-04] MEDS: AMIODARONE 200 MG TABLET PO SCH (08:32)
[2020-05-04] MEDS: SENNA/DOCUSATE TABLET PO SCH ×2 (08:32→08:35)
[2020-05-04] MEDS: FAMOTIDINE 20 MG TABLET PO SCH ×2 (08:32→20:23)
[2020-05-04] MEDS: APIXABAN 5 MG TABLET PO SCH ×2 (08:32→20:23)
[2020-05-04] MEDS ORDERED: MAGNESIUM SULFATE PMX 2GM/50ML 50 ML IV ONE (14:30)
[2020-05-04 14:55] VITALS: BP 143/80
[2020-05-04] MEDS ORDERED: POTASSIUM CHLORIDE 20 MEQ TAB.ER.PRT PO SCH (17:00)
[2020-05-04 20:29] VITALS: BP 124/62
[2020-05-05 00:05] VITALS: BP 130/78
[2020-05-05] MEDS: METOPROLOL TARTRATE 25 MG TAB PO SCH ×2 (05:45→17:54)
[2020-05-05] MEDS: CLOTRIMAZOLE TROCHES 10 MG PO SCH ×5 (05:45→21:22)
[2020-05-05] MEDS: PIPERACILLIN/TAZO/PMX 4.5GM 100 ML IV SCH ×3 (05:45→21:23)
[2020-05-05 06:04] LABS: MEAN CORPUSCULAR HGB CONC 33.4 g/dL (32.4-35.8); MEAN CORPUSCULAR VOLUME 89.7 fL (80-100); MEAN PLATELET VOLUME 7.9 fL (7.4-10.4); PLATELET COUNT 498 x10^3/uL (130-400); RED BLOOD COUNT 4.24 x10^6/uL (3.82-5.3); RED CELL DISTRIBUTION WIDTH 13.8 % (9.6-15.2)
[2020-05-05 06:10] LABS: ANION GAP 6 mmol/L (5-15); CALCIUM 7.8 mg/dL (8.5-10.1); CHLORIDE 101 mmol/L (98-107); CREATININE 1.19 mg/dL (0.55-1.02)
[2020-05-05 06:24] VITALS: BP 124/67
[2020-05-05 07:08] LABS: BASOPHILS # (AUTO) 0.01 x10^3/uL (0-0.1); BASOPHILS % (AUTO) 0 % (0-1); EOSINOPHILS % (AUTO) 1 % (1-7); LYMPHOCYTES # (AUTO) 1.09 x10^3/uL (1-3.4); LYMPHOCYTES % (AUTO) 8 % (22-44); MD SCAN; MONOCYTES # (AUTO) 0.73 x10^3/uL (0.2-0.8); MONOCYTES % (AUTO) 5 % (2-9); NEUTROPHILS # (AUTO) 12.28 x10^3/uL (1.8-6.8); NEUTROPHILS % (AUTO) 86 % (42-75)
[2020-05-05] MEDS: AMIODARONE 200 MG TABLET PO SCH (09:02)
[2020-05-05] MEDS: APIXABAN 5 MG TABLET PO SCH ×2 (09:02→21:23)
[2020-05-05] MEDS: FAMOTIDINE 20 MG TABLET PO SCH (09:02)
[2020-05-05] MEDS: SODIUM CHLORIDE FLUSH 10ML SYR IVF SCH ×2 (09:02→21:22)
[2020-05-05] MEDS: POTASSIUM CHLORIDE 20 MEQ TAB.ER.PRT PO SCH ×2 (09:03→17:53)
[2020-05-05 12:28] VITALS: BP 132/77
[2020-05-05] MEDS: OXYcodone IR 5MG TABLET PO PRN ×2 (13:25→21:23)
[2020-05-05 13:27] VITALS: BP 146/82
[2020-05-05 14:58] LABS: INTERNATIONAL NORMALIZED RATIO 1.21 (0.93-1.1); PROTHROMBIN TIME 12.9 Seconds (9.6-11.5)
[2020-05-05 17:04] LABS: ANION GAP 8 mmol/L (5-15); CALCIUM 7.5 mg/dL (8.5-10.1); CHLORIDE 101 mmol/L (98-107)
[2020-05-05] MEDS ORDERED: WARFARIN 5 MG TABLET PO-COUM ONE (18:00)
[2020-05-05 18:44] VITALS: BP 128/75
[2020-05-06 00:38] VITALS: BP 125/72
[2020-05-06] MEDS: OXYcodone IR 5MG TABLET PO PRN ×5 (01:35→21:41)
[2020-05-06 04:53] LABS: BASOPHILS # (AUTO) 0.01 x10^3/uL (0-0.1); BASOPHILS % (AUTO) 0 % (0-1); EOSINOPHILS # (AUTO) 0.24 x10^3/uL (0-0.4); EOSINOPHILS % (AUTO) 2 % (1-7); LYMPHOCYTES # (AUTO) 1.28 x10^3/uL (1-3.4); LYMPHOCYTES % (AUTO) 10 % (22-44); MD NO; MEAN CORPUSCULAR HEMOGLOBIN 29.5 pg (27.0-34.8); MEAN CORPUSCULAR HGB CONC 32.9 g/dL (32.4-35.8); MEAN CORPUSCULAR VOLUME 89.5 fL (80-100); MEAN PLATELET VOLUME 7.9 fL (7.4-10.4); MONOCYTES # (AUTO) 0.84 x10^3/uL (0.2-0.8); MONOCYTES % (AUTO) 6 % (2-9); NEUTROPHILS # (AUTO) 10.69 x10^3/uL (1.8-6.8); NEUTROPHILS % (AUTO) 82 % (42-75); PLATELET COUNT 468 x10^3/uL (130-400); RED BLOOD COUNT 3.79 x10^6/uL (3.82-5.3); RED CELL DISTRIBUTION WIDTH 14.1 % (9.6-15.2)
[2020-05-06 04:59] LABS: INTERNATIONAL NORMALIZED RATIO 1.12 (0.93-1.1); PROTHROMBIN TIME 11.9 Seconds (9.6-11.5)
[2020-05-06 05:01] LABS: ANION GAP 10 mmol/L (5-15); CALCIUM 7.8 mg/dL (8.5-10.1); CHLORIDE 102 mmol/L (98-107); CREATININE 1.06 mg/dL (0.55-1.02)
[2020-05-06] MEDS: PIPERACILLIN/TAZO/PMX 4.5GM 100 ML IV SCH ×3 (05:54→22:57)
[2020-05-06] MEDS: CLOTRIMAZOLE TROCHES 10 MG PO SCH ×5 (05:54→21:42)
[2020-05-06] MEDS: METOPROLOL TARTRATE 25 MG TAB PO SCH ×2 (05:54→17:11)
[2020-05-06 06:46] VITALS: BP 148/69
[2020-05-06] MEDS: POTASSIUM CHLORIDE 20 MEQ TAB.ER.PRT PO SCH ×2 (08:01→17:11)
[2020-05-06] MEDS: AMIODARONE 200 MG TABLET PO SCH (08:01)
[2020-05-06] MEDS: FAMOTIDINE 20 MG TABLET PO SCH (08:01)
[2020-05-06] MEDS: APIXABAN 5 MG TABLET PO SCH ×2 (08:02→21:40)
[2020-05-06] MEDS: SODIUM CHLORIDE FLUSH 10ML SYR IVF SCH ×2 (08:02→21:00)
[2020-05-06] MEDS: DOXYCYCLINE 100MG TABLET PO SCH ×2 (12:47→21:00)
[2020-05-06 15:13] VITALS: BP 150/71
[2020-05-06] MEDS ORDERED: WARFARIN 5 MG TABLET PO-COUM ONE (18:00)
[2020-05-06 21:00] VITALS: BP 155/81
[2020-05-07 02:36] VITALS: BP 148/75
[2020-05-07] MEDS: OXYcodone IR 5MG TABLET PO PRN ×3 (02:38→14:45)
[2020-05-07 05:15] LABS: BASOPHILS # (AUTO) 0.03 x10^3/uL (0-0.1); BASOPHILS % (AUTO) 0 % (0-1); EOSINOPHILS # (AUTO) 0.16 x10^3/uL (0-0.4); EOSINOPHILS % (AUTO) 1 % (1-7); LYMPHOCYTES # (AUTO) 0.89 x10^3/uL (1-3.4); LYMPHOCYTES % (AUTO) 7 % (22-44); MD NO; MEAN CORPUSCULAR HGB CONC 33.2 g/dL (32.4-35.8); MEAN CORPUSCULAR VOLUME 90.6 fL (80-100); MEAN PLATELET VOLUME 7.8 fL (7.4-10.4); MONOCYTES # (AUTO) 0.96 x10^3/uL (0.2-0.8); MONOCYTES % (AUTO) 8 % (2-9); NEUTROPHILS # (AUTO) 10.42 x10^3/uL (1.8-6.8); NEUTROPHILS % (AUTO) 84 % (42-75); PLATELET COUNT 526 x10^3/uL (130-400); RED BLOOD COUNT 3.94 x10^6/uL (3.82-5.3); RED CELL DISTRIBUTION WIDTH 14.1 % (9.6-15.2)
[2020-05-07 05:23] LABS: INTERNATIONAL NORMALIZED RATIO 1.21 (0.93-1.1); PROTHROMBIN TIME 12.8 Seconds (9.6-11.5)
[2020-05-07 05:24] LABS: ANION GAP 6 mmol/L (5-15); CALCIUM 7.9 mg/dL (8.5-10.1); CHLORIDE 105 mmol/L (98-107); CREATININE 1.06 mg/dL (0.55-1.02)
[2020-05-07] MEDS: CLOTRIMAZOLE TROCHES 10 MG PO SCH ×5 (06:29→20:58)
[2020-05-07] MEDS: PIPERACILLIN/TAZO/PMX 4.5GM 100 ML IV SCH ×3 (06:29→22:22)
[2020-05-07 06:49] VITALS: BP 131/70
[2020-05-07] MEDS ORDERED: AMIODARONE 200 MG TABLET PO SCH (09:30)
[2020-05-07] MEDS: DOXYCYCLINE 100MG TABLET PO SCH ×2 (10:16→20:57)
[2020-05-07] MEDS: FAMOTIDINE 20 MG TABLET PO SCH (10:16)
[2020-05-07] MEDS: POTASSIUM CHLORIDE 20 MEQ TAB.ER.PRT PO SCH ×2 (10:17→18:04)
[2020-05-07] MEDS: APIXABAN 5 MG TABLET PO SCH ×2 (10:17→20:57)
[2020-05-07] MEDS: SODIUM CHLORIDE FLUSH 10ML SYR IVF SCH ×2 (10:17→20:58)
[2020-05-07] MEDS: LISINOPRIL 20 MG TABLET PO SCH (10:21)
[2020-05-07 12:32] VITALS: BP 120/70
[2020-05-07] MEDS ORDERED: WARFARIN 5 MG TABLET PO-COUM ONE (18:00)
[2020-05-07] MEDS: METOPROLOL TARTRATE 25 MG TAB PO SCH (18:03)
[2020-05-07 20:08] VITALS: BP 113/49
[2020-05-08 01:41] VITALS: BP 123/47
[2020-05-08 05:41] LABS: INTERNATIONAL NORMALIZED RATIO 2.46 (0.93-1.1); PROTHROMBIN TIME 26.3 Seconds (9.6-11.5)
[2020-05-08 05:44] LABS: BASOPHILS # (AUTO) 0.04 x10^3/uL (0-0.1); BASOPHILS % (AUTO) 0 % (0-1); EOSINOPHILS # (AUTO) 0.16 x10^3/uL (0-0.4); EOSINOPHILS % (AUTO) 1 % (1-7); LYMPHOCYTES # (AUTO) 1.04 x10^3/uL (1-3.4); LYMPHOCYTES % (AUTO) 8 % (22-44); MD NO; MEAN CORPUSCULAR HEMOGLOBIN 29.5 pg (27.0-34.8); MEAN CORPUSCULAR HGB CONC 33.1 g/dL (32.4-35.8); MEAN CORPUSCULAR VOLUME 88.9 fL (80-100); MEAN PLATELET VOLUME 8.2 fL (7.4-10.4); MONOCYTES # (AUTO) 1.41 x10^3/uL (0.2-0.8); MONOCYTES % (AUTO) 11 % (2-9); NEUTROPHILS # (AUTO) 10.27 x10^3/uL (1.8-6.8); NEUTROPHILS % (AUTO) 80 % (42-75); PLATELET COUNT 561 x10^3/uL (130-400); RED BLOOD COUNT 3.69 x10^6/uL (3.82-5.3); RED CELL DISTRIBUTION WIDTH 13.9 % (9.6-15.2)
[2020-05-08 05:45] LABS: ANION GAP 8 mmol/L (5-15); CALCIUM 8.1 mg/dL (8.5-10.1); CHLORIDE 107 mmol/L (98-107); CREATININE 1.15 mg/dL (0.55-1.02)
[2020-05-08] MEDS: CLOTRIMAZOLE TROCHES 10 MG PO SCH ×4 (06:00→18:00)
[2020-05-08] MEDS: PIPERACILLIN/TAZO/PMX 4.5GM 100 ML IV SCH ×2 (06:30→14:02)
[2020-05-08 07:00] VITALS: BP 122/73
[2020-05-08] MEDS: POTASSIUM CHLORIDE 20 MEQ TAB.ER.PRT PO SCH ×2 (08:00→16:29)
[2020-05-08] MEDS: METOPROLOL TARTRATE 25 MG TAB PO SCH ×2 (08:00→18:37)
[2020-05-08] MEDS: FAMOTIDINE 20 MG TABLET PO SCH (08:26)
[2020-05-08] MEDS: OXYcodone IR 5MG TABLET PO PRN ×2 (08:26→14:07)
[2020-05-08] MEDS: DOXYCYCLINE 100MG TABLET PO SCH (08:26)
[2020-05-08] MEDS: LISINOPRIL 20 MG TABLET PO SCH (08:27)
[2020-05-08] MEDS: SODIUM CHLORIDE FLUSH 10ML SYR IVF SCH (08:27)
[2020-05-08 12:43] VITALS: BP 122/49
[2020-05-08] MEDS ORDERED: CLOT10TR PO (15:13)
[2020-05-08] MEDS ORDERED: LISI-170 PO (15:13)
[2020-05-08] MEDS ORDERED: POTA20TA6 PO (15:13)
[2020-05-08] MEDS ORDERED: WARF-36 PO-COUM (15:13)
[2020-05-08] MEDS ORDERED: OXYC5TAB3 PO (15:13)
[2020-05-08] MEDS ORDERED: METO25TA35 PO (15:13)
[2020-05-08] MEDS ORDERED: DOXY100T PO (15:13)
[2020-05-08] MEDS ORDERED: ONDA4TAB13 SL (15:13)
[2020-05-08] MEDS ORDERED: WARFARIN 5 MG TABLET PO-COUM ONE (18:00)
== END 2020-05-08 18:48 | DRG 326 ==
LOC: ED 05:33 → CCU 09:26 → 4EST 04-30 17:38 → 4NE 05-01 18:13 → 5SO 05-06 15:00
PROVIDERS: ADMIT Surgery; ATTEND Internal Medicine
PROC: 02HV33Z Insertion of Infusion Device into Superior Vena Cava, Percutaneous Approach (ICD-10-PCS; 2020-04-28)
PROC: B548ZZA Ultrasonography of Superior Vena Cava, Guidance (ICD-10-PCS; 2020-04-28)
PROC: 5A1945Z Respiratory Ventilation, 24-96 Consecutive Hours (ICD-10-PCS; 2020-04-28)
PROC: 0BH17EZ Insertion of Endotracheal Airway into Trachea, Via Natural or Artificial Opening (ICD-10-PCS; 2020-04-28)
PROC: 0T9B70Z Drainage of Bladder with Drainage Device, Via Natural or Artificial Opening (ICD-10-PCS; 2020-04-28)
PROC: 0DQ60ZZ Repair Stomach, Open Approach (ICD-10-PCS; principal; 2020-04-28 07:30)
DX: K91.89 Other postprocedural complications and disorders of digestive system (principal); A40.9 Streptococcal sepsis, unspecified; R65.21 Severe sepsis with septic shock; N17.0 Acute kidney failure with tubular necrosis; J96.01 Acute respiratory failure with hypoxia; K65.0 Generalized (acute) peritonitis; K85.90 Acute pancreatitis without necrosis or infection, unspecified; I48.20 Chronic atrial fibrillation, unspecified; I82.622 Acute embolism and thrombosis of deep veins of left upper extremity; D68.69 Other thrombophilia; I82.619 Acute embolism and thrombosis of superficial veins of unspecified upper extremity; I50.9 Heart failure, unspecified; I11.0 Hypertensive heart disease with heart failure; E87.6 Hypokalemia; E83.42 Hypomagnesemia; E78.5 Hyperlipidemia, unspecified; D64.9 Anemia, unspecified; B37.9 Candidiasis, unspecified; E66.9 Obesity, unspecified; F41.8 Other specified anxiety disorders; I25.10 Atherosclerotic heart disease of native coronary artery without angina pectoris; I48.0 Paroxysmal atrial fibrillation; I80.8 Phlebitis and thrombophlebitis of other sites; K59.00 Constipation, unspecified; Z96.653 Presence of artificial knee joint, bilateral; G89.29 Other chronic pain; M54.9 Dorsalgia, unspecified; R63.0 Anorexia; Z79.899 Other long term (current) drug therapy; Z82.49 Family history of ischemic heart disease and other diseases of the circulatory system; Z87.891 Personal history of nicotine dependence; Z90.710 Acquired absence of both cervix and uterus; Z90.49 Acquired absence of other specified parts of digestive tract; Y83.8 Other surgical procedures as the cause of abnormal reaction of the patient, or of later complication, without mention of misadventure at the time of the procedure; Y92.89 Other specified places as the place of occurrence of the external cause; Z88.2 Allergy status to sulfonamides; Z84.89 Family history of other specified conditions
CPT/HCPCS: 36415; 36600; 71045; 74176; 74177; 80048; 80053; 81001; 82330; 82533; 82803; 82947; 82962; 83036; 83605; 83735; 84100; 84132; 84145; 84295; 84439; 84443; 84478; 84481; 84484; 85014; 85025; 85610; 86850; 86900; 87015; 87040; 87070; 87075; 87077; 87081; 87086; 87102; 87116; 87186; 87205; 87206; 93005; 93306; 94002; 94003; 94640; 99291; C1729; G0378; J1170; J1644; J2250; J2405; J2543; J2704; J3010; J3370; J3480; J7060; C1765; C9113; J0282; J1450; J1940; J3475; J7030; J7050; J7120; Q9968